=== PATIENT | female | born 1955 | race Caucasian/White ===

== ENCOUNTER → 2019-08-15 09:01 | Outpatient (CLI) | payer OTHER, MEDICAID, SELFPAY ==
--- NOTE | 2019-08-15 09:07 | DI.US.S_ITS ---
PROCEDURE: US PELVIC COMPLETE INDICATIONS: CHARACTERIZATION OF OVARIAN MASS TECHNIQUE: Real-time scanning was performed of the pelvic organs, with image documentation. Additional endovaginal scanning was necessary due to incomplete visualization of the adnexal and endometrial structures by transabdominal scanning. COMPARISON: None. The prior outside images are not available for review at the time of this dictation. FINDINGS: Transabdominal scanning: Limited scanning through the kidneys shows no hydronephrosis. An extrarenal pelvis is seen on the right. No pathologic free abdominal or pelvic fluid. Hypoechoic uterine lesions are seen, which are attributed to fibroids. They measure as follows: Pedunculated superiorly located, Left mid uterus, intramural, 2.1 x 1.9 x 2.2 cm Right mid uterus, intramural, 0.6 x 0.6 x 0.6 cm. There is also a mass superior to the uterus, which extends to the level of the umbilicus that measures 11.8 x 9.5 x 7.1 cm. Endovaginal scanning: Uterus: Uterus is normal in size at 4.8 x 3.2 x 4.3 cm. The endometrial stripe is not seen. Ovaries: The right ovary measures 2 x 1.8 x 1.5 cm. The left ovary measures 1.0 x 0.9 x 1 cm. Immediately adjacent to the left ovary, there is a heterogeneous mass that measures 4.1 x 3.4 x 3 cm. No abnormal vascularity can be seen within this mass. IMPRESSION: There is a 4.1 cm left adnexal mass seen. Differential diagnosis includes an ovarian mass, a pedunculated fibroid, or nonspecific pelvic adnexal mass. Prominent uterine fibroids are seen, including an apparent 11.8 cm pedunculated fibroid along the superior aspect of the uterus. Please consider a gynecological protocol MRI (without and with contrast) for further evaluation (assuming that there is no contraindication). Dictated by: Garcia Smith M.D. on 08/15/2019 at 10:01 Approved by: Garcia Smith M.D. on 08/15/2019 at 10:07
== END ==
PROVIDERS: PCP Physician Assistant Medical; Referring Provider Obstetrics & Gynecology; Visit Provider Obstetrics & Gynecology
DX: N83.8 Other noninflammatory disorders of ovary, fallopian tube and broad ligament (principal); R19.09 Other intra-abdominal and pelvic swelling, mass and lump; D25.1 Intramural leiomyoma of uterus
CPT/HCPCS: 36415; 76830; 76856; 86304; 86305

== ENCOUNTER → 2019-08-15 12:32 | Outpatient (CLI) | payer OTHER, MEDICAID, SELFPAY ==
[2019-08-15 14:47] LABS: Cancer Antigen 125 10.8 U/mL (0-35)
== END ==
PROVIDERS: PCP Physician Assistant Medical; Referring Provider Obstetrics & Gynecology; Visit Provider Obstetrics & Gynecology
DX: R19.09 Other intra-abdominal and pelvic swelling, mass and lump (principal)
CPT/HCPCS: 36415; 86304; 86305

== ENCOUNTER → 2019-09-13 11:38 | Outpatient (CLI) | payer OTHER, MEDICAID, SELFPAY ==
--- NOTE | 2019-09-13 11:41 | DI.MRI.S_ITS ---
PROCEDURE: MR PELVIS WO/W CON INDICATIONS: Left adnexal mass TECHNIQUE: Coronal HASTE, sagittal breath-hold T2 FSE; axial T1 FSE with and without fat saturation through the pelvis. Optional long- and short-axis uterine nonbreath-hold T2 FSE through the uterus. Sagittal or axial dynamic VIBE during administration of contrast. Post-contrast axial or coronal VIBE/2-D FLASH with fat saturation from the iliac crests to the symphysis. Optional diffusion weighted imaging and ADC may be performed. COMPARISON: [facility], US, US PELVIC COMPLETE, 08/15/2019, 9:59. [facility], RG, US PELVIS/TRANSVAG/DOPPLER, 08/08/2019, 16:56. [facility], , CT ABDOMEN/PELVIS WITH CONTRAST, 08/08/2019, 15:26. FINDINGS: Image quality: Excellent. Uterus: Uterus is unchanged in size with reference to recent prior CT and ultrasound imaging. The uterine fundus is somewhat lobular, containing a partially calcified anterior uterine fibroid that distorts the normal thickness of the endometrial canal deviating it posteriorly as a result. Endometrium is free of abnormal internal fluid or debris/solid mass. Junctional zone is normal in thickness at 12 mm or less. The prior CT scanning has shown direct apposition of the anterior border of the serosal layer of the myometrium against the posterior border of a large mass within the lower mid pelvis anteriorly. The interface showed no intervening fat content, raising the question of whether this abnormality was in fact a unusually large exophytic subserosal fibroid. The current MR scanning, however, on sagittal views shows a definite intervening fat plane it is thin but present, establishing absence of a exophytic subserosal fibroid as cause of the more anterior mass. Adnexa: Both ovaries are not identified as normal structures. A right ovary is not seen. What appears to be the left ovary is contiguous with the leftward extension of the broad ligament, measuring approximately 5 cm AP, 3.3 cm transverse and approximately 4 cm craniocaudad which extends anteriorly from the broad ligament towards the large midline mass discussed above. The structure thought to represent the left ovary, well visualized on series 5 image 3, extends to direct apposition to the left posterior margin of the large solid mass. Therefore, the appearance is suggestive of. an ovarian cystic lesion with exophytic solid mass measuring up to 11.6 cm transverse, 7.1 cm AP and 7.0 cm craniocaudad. Urinary system: Bladder wall is normal in thickness. Distal ureters are non distended. Urethra appears normal in morphology. Nodes and vessels: No pelvic or inguinal adenopathy by size criteria. Iliac vessels are normal in size. Bowel and peritoneum: No pathologic free pelvic fluid. Inferior colon and small bowel loops are normal in caliber. Soft tissues: No inguinal hernias. No findings of pelvic floor incompetence in the absence of provocation. Bones: Marrow demonstrates normal overall signal. Note is made of a relatively large perineural cyst involving the sacral midline containing water signal within, measuring approximately 10.9 cm craniocaudad and 2.6 cm AP, previously present on recent CT scanning. IMPRESSION: Recommend gynecological surgical consultation. Potential malignant left ovarian mass both cystic and solid in character. As discussed above there is a definite fat plane between the anterior border of the uterus and the posterior border of the midline large solid mass within the lower pelvic peritoneal space. This mass is contiguous with a cystic structure in the expected area of the left ovary, contiguous with the anterior border of the broad ligament on the left, and therefore the large solid mass is considered most likely a solid component of a left ovarian lesion rather than a large exophytic subserosal fibroid. No metastatic disease currently seen. No endometrial mass found. Anterior intramural calcified uterine fibroid noted, also seen on CT scanning recently performed elsewhere. A normal or abnormal right ovary could not be located. Dictated by: Dionte Pino M.D. on 09/14/2019 at 13:03 Approved by: Dionte Pino M.D. on 09/14/2019 at 13:14
== END ==
PROVIDERS: PCP Physician Assistant Medical; Referring Provider Obstetrics & Gynecology; Visit Provider Obstetrics & Gynecology
DX: N94.89 Other specified conditions associated with female genital organs and menstrual cycle (principal); D25.1 Intramural leiomyoma of uterus; R19.00 Intra-abdominal and pelvic swelling, mass and lump, unspecified site
CPT/HCPCS: 72197; A9579